=== PATIENT | male | born 1975 | race Caucasian/White ===

== ENCOUNTER 2016-08-23 13:15 | Day surgery (SDC) | payer OTHER ==
--- NOTE | ~2016-08-23 | OP ---
Record Of Operation [facility] [address] [place]. [address] NAME: CECILIO CHILDRESS : 77 STATUS : [facility]#: [id number] AGE: 41 ADM/REG DATE : 08/23/16 MR#: [id number] REPORT SERV DATE: 08/24/16 DICTATED BY: REBA MITCHELL DATE: 08/24/16 REPORT STATUS : Draft TRANSCRIBED BY: VANESA DATE: 08/24/16 DATE OF PROCEDURE: TYPE OF OPERATION: Cystourethroscopy, right retrograde pyelogram, right ureteroscopy with laser lithotripsy, and placement of 6 x 28 right ureteral stent. PREOPERATIVE DIAGNOSES: 1. Right ureteral stone. 2. Left renal stone. POSTOPERATIVE DIAGNOSIS: 1. Right ureteral stone. 2. Left renal stone. 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 CT scan demonstrates a 4-mm stone in his distal right ureter. He also has a nonobstructing stone in his left kidney. He is here for treatment. ANESTHESIA: General. COMPLICATIONS: None. IMPLANT: 6 x 28 right ureteral stent with tether. SPECIMEN: Stone for analysis. NARRATIVE: The patient brought to the operating room, identified by his wristband. General anesthesia was induced and Levaquin was given for preoperative antibiotics. He was placed in dorsal lithotomy position, prepped and draped in sterile fashion. A cystoscope was placed into his urethra and into his bladder. His prostatic urethra was normal. The bladder was inspected. It was normal. There were no tumors, trabeculations, or other abnormalities. The right ureteral orifice was identified and cannulated with Sensor wire. A 5-Afghan open-ended catheter was placed over the wire to the ureter. Retrograde pyelogram was shot, which showed a dilated ureter and no filling defects. A wire was placed up to the level of the kidney under fluoroscopic guidance. A rigid ureteroscope was placed alongside the wire into the distal ureter. A 4-mm stone was encountered. It was laser fragmented into very small pieces with a 200 micron holmium laser fiber. These pieces were sequentially removed from the ureter and placed into the bladder with a 0 tip Nitinol basket. There were no stones on this side of the body at all at the end of the procedure. A 6 x 28 ureteral stent was then placed in a standard fashion. The proximal coil was coiled in the upper pole. Distal coil was in the bladder. A string was left. The left ureteral orifice was tight in nature. I did not think it was a good idea to try to instrument this side, as his left side is asymptomatic. The bladder was drained. The stone was sent for analysis. The tether was taped to his penis. He will follow up on for stent removal. Record Of Operation [address] [address] NAME: CECILIO CHILDRESS : 77 STATUS : [facility] PAT#: [id number] AGE: 41 ADM/REG DATE : 08/23/16 MR#: [id number] REPORT SERV DATE: 08/24/16 DICTATED BY: REBA MITCHELL DATE: 08/24/16 REPORT STATUS : Draft TRANSCRIBED BY: VANESA DATE: 08/24/16 RASHIDA/VANESA Reba Mitchell MD / [id number] CC: Reba Mitchell MD
[~2016-08-23 13:15] MED LIST: *DENIES
[2016-08-23 13:47] LABS: ASCORBIC ACID (UR NOT ORDER) NEG (NEG); BILIRUBIN, URINE NEGATIVE (NEG); KETONE, URINE NEGATIVE (NEG); LEUKOCYTE ESTERASE(NOT OR NEG (NEG); WBC (NOT ORDERED) (RFLEX) 1 (0-5)
[2016-08-23 15:00] LABS: BUN (BLOOD UREA NITROGEN) 12 MG/DL (6-23); CALCIUM, SERUM 8.8 MG/DL (8.5-10.4); CHLORIDE, SERUM 110 MMOL/L (96-112); CO2 (CARBON DIOXIDE) 29 MMOL/L (24-34); CREATININE 0.86 MG/DL (0.70-1.30); GFR AFRICAN AMERICAN 126 ML/MIN (>=60); GFR NON AFRICAN AMERICAN 108 ML/MIN (>=60); GLUCOSE, SERUM 88 MG/DL (60-99); SODIUM, SERUM 144 MMOL/L (135-148)
[2016-08-28 16:58] LABS: STONE COMPOSITION TWO DNR (())
== END 2016-08-23 20:02 | disposition home or self-care (01) ==
LOC: SDC 13:15
PROVIDERS: Urology
PROC: 0T768DZ Dilation of Right Ureter with Intraluminal Device, Via Natural or Artificial Opening Endoscopic (ICD-10-PCS; 2016-08-23)
PROC: BT1DZZZ Fluoroscopy of Right Kidney, Ureter and Bladder (ICD-10-PCS; 2016-08-23)
PROC: 0TC68ZZ Extirpation of Matter from Right Ureter, Via Natural or Artificial Opening Endoscopic (ICD-10-PCS; 2016-08-23)
PROC: 0TF68ZZ Fragmentation in Right Ureter, Via Natural or Artificial Opening Endoscopic (ICD-10-PCS; principal; 2016-08-23 12:30)
DX: N20.2 Calculus of kidney with calculus of ureter (principal)
CPT/HCPCS: 74420; 80048; 81001; 82365; A9270-GY; C1758; C2617; J1885; J2250; J2270; J2405; J2550; J2710; J3010; Q9967